=== PATIENT | male | born 1965 ===

== ENCOUNTER → 2020-08-03 | Outpatient (CLI) | payer SELFPAY | LOC: LAB 15:30 | PROVIDERS: ATTEND Podiatrist | DX: E11.621 Type 2 diabetes mellitus with foot ulcer (principal); L03.115 Cellulitis of right lower limb; E11.40 Type 2 diabetes mellitus with diabetic neuropathy, unspecified; E11.51 Type 2 diabetes mellitus with diabetic peripheral angiopathy without gangrene | CPT/HCPCS: 87071; 87075; 87077; 87186 ==